=== PATIENT | female | born 1980 | race Caucasian/White ===

== ENCOUNTER 2021-08-15 13:23 | Emergency (ER) | payer OTHER, SELFPAY ==
[2021-08-15 13:34] VITALS: BP 121/75; PULSE 62; RESP 16; TEMP 36.6; O2SAT 100
--- NOTE | 2021-08-15 14:02 | ED.URI ---
HPI - URI/Sore Throat General Chief Complaint: Upper Respiratory Infection Stated Complaint: Sore Throat Source: patient and RN notes reviewed Mode of arrival: ambulatory Limitations: no limitations History of Present Illness HPI Narrative: 40-year-old female presented for complaint of sore throat for 4 days. She also endorses sinus pressure and congestion with postnasal drainage for about a week, left ear pain started yesterday. Endorses children are sick contacts but they were not testing positive for anything. She has taken [id number] Sudafed for symptoms. She denies associated chest pain, shortness of breath, wheezing, nausea, vomiting, diarrhea, fever or chills. MD elicited complaint: cough Related Data Allergies Allergy/AdvReac Type Severity Reaction Status Date / Time metoclopramide [From Reglan] Allergy Muscle Verified 08/15/21 13:58 Spasms Review of Systems Review of Systems: CONSTITUTIONAL: denies malaise, chills, sweats, fever EYES: Denies visual changes, redness, or discharge ENT: Reports rhinorrhea, congestion, sinus pain, otalgia, sore throat CARDIOVASCULAR: Denies chest pain, palpitations, edema RESPIRATORY: reports cough, post nasal drainage GASTROINTESTINAL: Denies abdominal pain, nausea, vomiting, diarrhea SKIN: Denies rash or itching MUSCULOSKELETAL: denies myalgia NEUROLOGIC: Denies headache Exam Narrative: GENERAL: Ill-appearing HEAD: Normocephalic EYES: PERRLA, conjunctivae clear ENT: Mucous membranes moist. TM pearly alvarado with normal light reflex bilaterally; no tragal tenderness. Oropharynx erythematous without lesions or exudate, tonsils absent, no drooling, no hoarseness, no trismus, uvula midline. NECK: Supple. No lymphadenopathy CHEST: Clear to auscultation, breath sounds equal. No respiratory distress, speaks in full sentences. HEART: Regular rate and rhythm. No murmur heard. SKIN: Warm, dry, no rash. NEURO: Alert and oriented x3. PSYCH: Normal mood and affect Course Course Emergency Course: Patient is aware of diagnosis, understands and agrees to treatment plan. Anticipatory guidance given. Patient agrees to follow-up as directed and is aware of reasons to seek care at the emergency department. Portions of this record may have been created with voice recognition software Level of Care: Express Care Visit Vital Signs Vital signs: Vital Signs Temperature 97.8 F 08/15/21 13:34 Pulse Rate 62 08/15/21 13:34 Respiratory Rate 16 08/15/21 13:34 Blood Pressure 121/75 08/15/21 13:34 Pulse Oximetry 100 08/15/21 13:34 Oxygen Delivery Room Air 08/15/21 13:34 Temperature 97.8 F 08/15/21 13:34 Pulse Rate 62 08/15/21 13:34 Respiratory Rate 16 08/15/21 13:34 Blood Pressure 121/75 08/15/21 13:34 Pulse Oximetry 100 08/15/21 13:34 Oxygen Delivery Room Air 08/15/21 13:34 reviewed MDM - URI/Sore Throat Differential Diagnosis Differential diagnosis: Likely upper respiratory infection, sinusitis, viral infection and pharyngitis Lab Data Attestation: I reviewed the patient's lab results. Labs: Strep Screen Presumptive Negative *(Reference Range: Negative)* Discharge Plan Discharge Clinical Impression: Pharyngitis Patient Disposition: Home, Self-Care Condition: Stable Instructions: Antibiotic Form, Pharyngitis (ED), Strep Throat (ED) Additional Instructions: Rapid strep swab was negative today You will be notified in a few days if the culture comes back positive for strep, and appropriate antibiotics will be called in at that time. if symptoms are due to a viral illness, it is not treated with antibiotics. Viral symptoms can be present for up to 10-14 days. Recommend Flonase spray and Zyrtec Cough syrup may cause drowsiness; avoid driving or take it at night time. Tylenol 1000mg every 8 hours as needed for pain/fever Soft foods, cool liquids, warm tea. Gargle w
[2021-08-15 14:16] VITALS: BP 108/78; PULSE 81; RESP 15; TEMP 36.8; O2SAT 100
== END 2021-08-15 14:18 | disposition home or self-care (01) ==
PROVIDERS: Emergency Provider Nurse Practitioner Family; PCP Nurse Practitioner Family
DX: J02.9 Acute pharyngitis, unspecified (principal)
CPT/HCPCS: 87081; 87880; 99203; G0463

== ENCOUNTER 2022-08-16 17:20 | Emergency (ER) | payer OTHER, SELFPAY ==
--- NOTE | 2022-08-16 17:23 | ED.FEMALEGU ---
HPI - Female Genitourinary General Chief complaint: Urogenital-Female Stated complaint: Female Urogenital Time Seen by Provider: 08/16/22 17:37 Source: patient and RN notes reviewed Mode of arrival: ambulatory Limitations: no limitations History of Present Illness HPI Narrative: 41-year-old female presents with concern for dark urine, suprapubic pressure, dysuria. She reports several days ago she had 2 days of nausea, vomiting, diarrhea and that she could have been dehydrated. She reports those symptoms have resolved. She reports history of urinary tract infections. MD elicited complaint: dysuria Related Data Home Medications Medication Instructions Recorded Confirmed ergocalciferol (vitamin D2) 1,250 1,250 mcg PO WEEKLY 08/16/22 08/16/22 mcg (50,000 unit) capsule liraglutide 0.6 mg/0.1 mL (18 mg/3 0.6 mg subcut DAILY 08/16/22 08/16/22 mL) subcutaneous pen injector (StackSafetoza 2-Luis) omeprazole 40 mg capsule,delayed 40 mg PO DAILY 08/16/22 08/16/22 release propranolol 80 mg capsule,24 80 mg PO DAILY 08/16/22 08/16/22 hr,extended release Allergies Allergy/AdvReac Type Severity Reaction Status Date / Time metoclopramide [From Reglan] Allergy Muscle Verified 08/16/22 17:40 Spasms Review of Systems Review of Systems: CONSTITUTIONAL: Denies malaise, chills, sweats, or fever. CARDIOVASCULAR: Denies chest pain, palpitations, or edema. RESPIRATORY: Denies cough or dyspnea. GASTROINTESTINAL: Denies abdominal pain, nausea, vomiting, diarrhea GENITOURINARY: Reports dysuria, frequency, dark colored urine suprapubic pressure. Denies flank pain or hematuria. SKIN: Denies rash or itching. MUSCULOSKELETAL: Denies back pain or myalgia. All systems reviewed & are unremarkable except as noted in HPI and below PMFSH Comments At time of signature, agree with nursing past medical, surgical, social and family history. There is no relevant family history pertinent to the presenting complaint Exam Narrative: GENERAL: Well-appearing, well-nourished, and in no acute distress. HEAD: Normocephalic. EYES: PERRLA, conjunctivae clear. NECK: Supple. No lymphadenopathy CHEST: Clear to auscultation. No respiratory distress. HEART: Regular rate and rhythm. ABDOMEN: Soft, nontender upon palpation, nondistended, normal active bowel sounds, no palpable or pulsatile masses, no guarding. No CVA tenderness SKIN: Warm, dry, no rash. NEURO: Alert and oriented x3. PSYCH: Normal mood and affect Course Course Emergency Course: Discussed waiting for culture to start antibiotic versus starting antibiotic now, patient would rather started antibiotic now so she ?does not get any sicker?. Patient would like to be called if her urine is negative. Patient is aware of diagnosis, understands and agrees to treatment plan. Anticipatory guidance given. Patient agrees to follow-up as directed and is aware of reasons to seek care at the emergency department. Portions of this record may have been created with voice recognition software Level of Care: Express Care Visit Vital Signs Vital signs: Reviewed. MDM - Female Genitourinary MDM Narrative Medical decision making narrative: Exam findings and UA show no acute concerns or changes; patient is non-toxic appearing and is in no distress. Patient is appropriate for outpatient treatment and follow-up. Differential Diagnosis Differential diagnosis: Likely urinary tract infection and cystitis Critical Care Time Critical Care Time Critical Care Time: No Discharge Plan Discharge Clinical Impression: Symptoms of urinary tract infection Patient Disposition: Home, Self-Care Condition: Stable Instructions: Antibiotic Form, Urinary Tract Infection in Women (ED) Additional Instructions: We will send a urine culture to the lab; if the culture identifies an organism that the prescribed antibiotic will not treat, you will receive a phone call from an urgent care staff member and
[2022-08-16 17:28] VITALS: BP 119/75; PULSE 78; RESP 18; TEMP 36.6; O2SAT 98
== END 2022-08-16 17:50 | disposition home or self-care (01) ==
PROVIDERS: Emergency Provider Nurse Practitioner; PCP Nurse Practitioner Family
DX: R30.0 Dysuria (principal); R35.0 Frequency of micturition; R10.30 Lower abdominal pain, unspecified
CPT/HCPCS: 81003; 87086; 99213; G0463

== ENCOUNTER 2023-02-20 12:56 | Outpatient (CLI) | payer BC, MEDICAID, SELFPAY ==
--- NOTE | ~2023-02-20 | XR_ITS ---
Lumbosacral Spine: AP and lateral views, with neutral, flexion, and extension positioning Clinical History: Pain Findings: The normal lordotic curve is maintained. There is posterior and interbody fusion from L5 to S1. Remaining intervertebral disc spaces are preserved. No instability evident on flexion or extensi on. The sacroiliac joints are normally outlined. Impression: Posterior and interbody fusion from L5 to S1, as detailed above. No instability evident. Reviewed, dictated and finalized at location M. PATHIC DOCTOR Impression: Posterior and interbody fusion from L5 to S1, as detailed above. No instability evident.
--- NOTE | 2023-02-20 14:45 | NEURO_ITS ---
Impression: # History of Cerebral Palsy complains of paresthesia. # Normal Nerve Conduction Study of upper and lower extremities. # Normal needle/EMG exam. No myotonia or denervation potentials. Nerve Conduction Studies Anti Sensory Summary Table Stim Site NR Peak (ms) P-T Amp (?V) Site1 Site2 Delta-P (ms) Dist (cm) Fidel (m/s) Left Median Anti Sensory (2-3nd Digit) Wrist 2.7 88.5 Wrist 2-3nd Digit 2.7 14.0 52 Wrist 2.7 72.6 Wrist 2-3nd Digit 2.7 14.0 52 Right Median Anti Sensory (2-3nd Digit) Wrist 2.6 98.5 Wrist 2-3nd Digit 2.6 14.0 54 Wrist 2.6 84.9 Wrist 2-3nd Digit 2.6 14.0 54 Left Radial Anti Sensory (Base 1st Digit) Wrist 1.8 45.6 Wrist Base 1st Digit 1.8 0.0 Right Radial Anti Sensory (Base 1st Digit) Wrist 2.0 57.7 Wrist Base 1st Digit 2.0 0.0 Left Sup Fibular Anti Sensory (Ant Lat Mall) 14 cm 3.1 21.0 14 cm Ant Lat Mall 3.1 16.0 52 Right Sup Fibular Anti Sensory (Ant Lat Mall) 14 cm 2.9 15.4 14 cm Ant Lat Mall 2.9 16.0 55 Left Sural Anti Sensory (Lat Mall) Calf 3.4 18.6 Calf Lat Mall 3.4 16.0 47 Right Sural Anti Sensory (Lat Mall) Calf 3.6 20.2 Calf Lat Mall 3.6 16.0 44 Left Ulnar Anti Sensory (5th Digit) Wrist 2.4 67.0 Wrist 5th Digit 2.4 14.0 58 Right Ulnar Anti Sensory (5th Digit) Wrist 2.3 72.0 Wrist 5th Digit 2.3 14.0 61 Motor Summary Table Stim Site NR Onset (ms) O-P Amp (mV) Site1 Site2 Delta-0 (ms) Dist (cm) Fidel (m/s) Left Median Motor (Abd Poll Brev) Wrist 3.0 4.5 Elbow Wrist 4.8 32.0 67 Elbow 7.8 6.9 Right Median Motor (Abd Poll Brev) Wrist 2.8 3.8 Elbow Wrist 4.5 27.0 60 Elbow 7.3 3.5 Left Peroneal Motor (Vastus Med) Ankle 4.6 3.4 Popit Ankle 7.3 39.0 53 Popit 11.9 3.5 Right Peroneal Motor (Vastus Med) Ankle 4.5 4.1 Popit Ankle 7.1 37.0 52 Popit 11.6 5.0 Left Tibial Motor (Abd Taylor Brev) Ankle 4.8 2.9 Knee Ankle 7.9 39.0 49 Knee 12.7 2.9 Right Tibial Motor (Abd Taylor Brev) Ankle 4.8 1.7 Knee Ankle 7.9 39.0 49 Knee 12.7 1.1 Left Ulnar Motor (Abd Dig Minimi) Wrist 2.2 9.3 A Elbow Wrist 4.5 29.0 64 A Elbow 6.7 8.2 Right Ulnar Motor (Abd Dig Minimi) Wrist 2.3 9.7 A Elbow Wrist 4.5 28.0 62 A Elbow 6.8 8.7 F Wave Studies NR F-Lat (ms) L-R F-Lat (ms) Left Median (Mrkrs) (Abd Poll Brev) 25.15 0.58 Right Median (Mrkrs) (Abd Poll Brev) 24.56 0.58 Left Peroneal (Mrkrs) (EDB) 48.44 0.94 Right Peroneal (Mrkrs) (EDB) 49.38 0.94 Left Tibial (Mrkrs) (Abd Hallucis) 49.27 0.56 Right Tibial (Mrkrs) (Abd Hallucis) 49.82 0.56 Left Ulnar (Mrkrs) (Abd Dig Min) 25.50 0.00 Right Ulnar (Mrkrs) (Abd Dig Min) 25.50 0.00 EMG Side Muscle Nerve Root Ins Act Fibs Amp Dur Recrt Comment Right 1stDorInt Ulnar C8-T1 Nml Nml Nml Nml Nml Right Ext Indicis Radial (Post Int) C7-8 Nml Nml Nml Nml Nml Right Ext Digitorum Radial (Post Int) C7-8 Nml Nml Nml Nml Nml Right BrachioRad Radial C5-6 Nml Nml Nml Nml Nml Right PronatorTeres Median C6-7 Nml Nml Nml Nml Nml Right Abd Poll Brev Median C8-T1 Nml Nml Nml Nml Nml Right AntTibialis Dp Br Fibular L4-5 Nml Nml Nml Nml Nml Right Gastroc Tibial S1-2 Nml Nml Nml Nml Nml
== END 2023-02-20 12:57 | disposition home or self-care (01) ==
PROVIDERS: PCP Family Medicine; Visit Provider Family Medicine
DX: G62.9 Polyneuropathy, unspecified (principal); Z98.1 Arthrodesis status
CPT/HCPCS: 72110; 95886; 95913

== ENCOUNTER 2023-03-13 10:24 | Outpatient (CLI) | payer BC, MEDICAID, SELFPAY ==
--- NOTE | ~2023-03-13 | MR_ITS ---
EXAMINATION: MR lumbar spine wo con DATE: 03/13/2023 11:16 INDICATION: Low back pain with unspecified injury unspecified level of the lumbar spine. TECHNIQUE: Magnetic resonance imaging (MRI) of the lumbar spine was performed without intravenous con trast. Sequences included sagittal T2-weighted FSE, sagittal T2-weighted FS FSE, sagittal T1-weighted FSE, and axial T2-weighted FSE. COMPARISON: MR spine radiographs dated 02/20/2023 FINDINGS: L5 laminectomy with combined instrumented anterior and posterior spinal fusion at L5-S1. There appear s to be a few millimeter of anterolisthesis of L5 on S1 however measurement is precluded by magnetic field artifact associated with the interbody bone graft cage. There is additional magnetic field lefty fact associated with the bilateral vertical macy and pedicle screw fixation. Vertebral body heights ar e normal. Normal marrow signal. T12-L4 L5 discs are normal with normal height and signal. The conus medullaris terminates at L1. Ther e is normal signal in the caudal spinal cord. Paravertebral soft tissues are unremarkable. The follow ing disc levels are specifically discussed: T12-L1: The disc does not extend beyond the endplate margin. There is mild bilateral facet joint oste oarthritis. There is no neural foraminal stenosis. There is no central canal stenosis. L1-L2: Very small left foraminal zone disc protrusion There is mild bilateral facet joint osteoarthri tis. There is mild left neural foraminal stenosis. There is no central canal stenosis. L2-L3: Very small bilateral foraminal zone disc protrusions. There is mild bilateral facet joint oste oarthritis. There is mild bilateral neural foraminal stenosis. There is no central canal stenosis. L3-L4: Disc is mildly bulging. There is mild right and minimal left facet joint osteoarthritis. There is mild to moderate bilateral neural foraminal stenosis. There is negligible central canal stenosis. L4-L5: Disc is mildly bulging. There is mild bilateral facet joint osteoarthritis. There is moderate bilateral neural foraminal stenosis. There is no central canal stenosis. L5-S1: Anterior fusion procedure with the metallic field artifact obscuring a small posterior bridgin g osteophyte at appreciated on the prior radiographs. Instrumented posterior spinal fusion. There is no neural foraminal stenosis. There is posterior decompression with no central canal stenosis. IMPRESSION: 1. L5 laminectomies with instrumented L5-S1 anterior and posterior spinal fusion. 2. Minimal spondylosis in the more cephalad lumbar spine. Reviewed, dictated and finalized at location A. D OPERATIONS SUPERVISOR IMPRESSION: 1. L5 laminectomies with instrumented L5-S1 anterior and posterior spinal fusio n. 2. Minimal spondylosis in the more cephalad lumbar spine.
== END 2023-03-13 10:25 | disposition home or self-care (01) ==
PROVIDERS: PCP Family Medicine; Visit Provider Physician Assistant
DX: M43.27 Fusion of spine, lumbosacral region (principal); M43.06 Spondylolysis, lumbar region; M96.1 Postlaminectomy syndrome, not elsewhere classified; S34.109A Unspecified injury to unspecified level of lumbar spinal cord, initial encounter; X58.XXXA Exposure to other specified factors, initial encounter
CPT/HCPCS: 72148